=== PATIENT | male | born 1965 | race Caucasian/White ===

== ENCOUNTER 2018-01-11 09:51 | Outpatient (CLI) | payer BC ==
[~2018-01-11] VITALS: Ht 180.3 cm; Wt 72.6 kg
[2018-01-11] MEDS ORDERED: HYDR-700 PO (14:19)
== END 2018-01-11 14:19 ==
LOC: PREOP 09:51
PROVIDERS: ATTEND Surgery
DX: Z01.818 Encounter for other preprocedural examination (principal); Z12.11 Encounter for screening for malignant neoplasm of colon

== ENCOUNTER 2018-01-18 07:50 | Day surgery (SDC) | payer BC, OTHER ==
[~2018-01-18] VITALS: Ht 180.3 cm; Wt 72.6 kg
[~2018-01-18 07:50] MED LIST: HYDR-700 PO
[2018-01-18] MEDS ORDERED: LACTATED RINGERS 1,000 ML IV STA (07:59)
[2018-01-18] MEDS ORDERED: PROPOFOL INJECTION 50 ML IV ONE (08:03)
[2018-01-18] MEDS ORDERED: MIDAZOLAM 2 MG/2 ML (VERSED) VIAL ONE (08:03)
[2018-01-18 08:17] VITALS: BP 146/108
--- NOTE | 2018-01-18 08:55 | Progress Note-Post Operative ---
Post-Operative Progess Note Surgeon (s)/Policewoman (s) Surgeon LOGAN MILLIGAN DO Policewoman: na Pre-Operative Diagnosis screening colonoscopy Post-Operative Diagnosis colon polyps Procedure & Operative Findings Date of Procedure 01/18/18 Procedure Performed/Findings colonoscopy with hot bx polypectomy x 2 Anesthesia Type per mda Estimated Blood Loss Estimated blood loss (mL): none Specimens/Packing Specimens Removed cecum, hepatic flexure polyp LOGAN MILLIGAN DO Jan 18, 2018 08:55
--- NOTE | 2018-01-18 08:57 | Discharge Inst-Simple/Standard ---
Discharge Inst-Standard Patient Instructions/Follow Up Plan of Care/Instructions/FU: 2 weeks pura Activity as Tolerated: Yes Discharge Diet: Regular Diet LOGAN MILLIGAN DO Jan 18, 2018 08:57
[2018-01-18 09:00] VITALS: BP 132/102
[2018-01-18 09:30] VITALS: BP 130/105
[2018-01-18 09:35] VITALS: BP 130/105
--- NOTE | 2018-01-18 09:49 | Anesthesia-General Post-Op ---
General Patient Condition Mental Status/LOC: Same as Preop Cardiovascular: Satisfactory Nausea/Vomiting: Absent Respiratory: Satisfactory Pain: Controlled Complications: Absent Post Op Complications Complications None Follow Up Care/Instructions Patient Instructions None needed. Anesthesia/Patient Condition Patient Condition Patient was doing well prior to discharge to home, no complaints, stable vital signs, no apparent adverse anesthesia problems. JARED LOCKE DO Jan 18, 2018 09:49
--- NOTE | 2018-01-18 13:12 | OPERATIVE REPORT ---
DATE OF SERVICE: 01/18/2018 PREOPERATIVE DIAGNOSIS: Screening colonoscopy. POSTOPERATIVE DIAGNOSIS: Colon polyps. PROCEDURE: Colonoscopy with hot biopsy polypectomy x2. SURGEON: Logan Patterson DO. ANESTHESIA: Per MDA. ESTIMATED BLOOD LOSS: None. COMPLICATIONS: None. INDICATIONS: The patient is a 52-year-old male due for screening colonoscopy. He understands risks and benefits of procedure and wished to proceed with procedure. Consent was signed on the chart. DESCRIPTION OF PROCEDURE: The patient was taken to the endoscopy suite, placed in left lateral recumbent position. Timeout was performed. Digital rectal exam was performed and no palpable polyps, masses or ulcerations. The scope was inserted in the rectum and advanced all the way to the cecum with minimal difficulty. Prep was adequate. In the cecum, a small polyp was present, which hot biopsy polypectomy was performed. Scope was then continuously retracted back. There were no polyps present in the ascending colon, but at the hepatic flexure, small polyp was present, which hot biopsy polypectomy was performed. Scope was then continued slowly retracted back. There were no polyps, masses or ulcerations within the transverse colon, descending colon. Within the sigmoid colon, there was some diverticulosis present. No polyps, masses or ulcerations. Once in the rectum, scope was also retroflexed noting no other pathology. Scope was returned to its normal position, slowly withdrawn to completely remove. The patient tolerated procedure well without any complications and taken to recovery room in stable condition. RECOMMENDATIONS: The patient will follow up in the office in 2 weeks to discuss pathology results. If he has any problems, he should be seen at that time, otherwise followup colonoscopy in 5 years. Job ID: [id number] DocumentID: [id number] Dictated Date: 01/18/2018 08:59:54 Chrome Cleaner Date: 01/18/2018 13:12:28 Dictated By: LOGAN PATTERSON DO
== END 2018-01-18 09:35 | disposition home or self-care (01) ==
LOC: ENDO 07:50
PROVIDERS: ATTEND Surgery
DX: Z12.11 Encounter for screening for malignant neoplasm of colon (principal); D12.0 Benign neoplasm of cecum; D12.3 Benign neoplasm of transverse colon; K57.30 Diverticulosis of large intestine without perforation or abscess without bleeding; I10 Essential (primary) hypertension; Z79.899 Other long term (current) drug therapy